=== PATIENT | male | born 1990 ===

== ENCOUNTER → 2016-11-01 | Outpatient (REF) | payer OTHER ==
[2016-11-01 10:38] LABS: % NORMAL FORMS 22 % (>=4); IMMOTILITY 27 %; NON PROGRESSIVE MOTILITY (c) 12 %; PROGRESSIVE MOTILITY (a) 61 % (>=32); TOTAL MOTILITY 73 % (>=40)
[2016-11-01 10:39] LABS: SPERM# 81.5 M/Ejac (33-46); TOTAL PROGRESSIVE SPERM 49.8 M/Ejac.
== END ==
LOC: M LAB REF 09:57
PROVIDERS: ATTEND Physician Assistant
DX: Z31.41 Encounter for fertility testing (principal)

== ENCOUNTER → 2016-11-08 | Outpatient (REF) | payer OTHER ==
[2016-11-08 10:07] LABS: SPERM ABNORMAL FORMS WBC'S NOTED
[2016-11-08 10:08] LABS: % NORMAL FORMS 15 % (>=4); IMMOTILITY 44 %; NON PROGRESSIVE MOTILITY (c) 10 %; PROGRESSIVE MOTILITY (a) 46 % (>=32); SPERM# 213.8 M/Ejac (33-46); TOTAL FUNCTIONAL 31.7 M/Ejac.; TOTAL MOTILITY 56 % (>=40); TOTAL PROGRESSIVE SPERM 99.2 M/Ejac.
== END ==
LOC: M LAB REF 09:57
PROVIDERS: ATTEND Physical Therapist
DX: Z31.41 Encounter for fertility testing (principal)

== ENCOUNTER → 2016-11-15 | Outpatient (REF) | payer OTHER ==
[2016-11-15 11:13] LABS: SPERM ABNORMAL FORMS WBC'S NOTED
[2016-11-15 11:14] LABS: % NORMAL FORMS 28 % (>=4); IMMOTILITY 3 %; NON PROGRESSIVE MOTILITY (c) 13 %; PROGRESSIVE MOTILITY (a) 84 % (>=32); TOTAL FUNCTIONAL 48.6 M/Ejac.; TOTAL MOTILITY 97 % (>=40); TOTAL PROGRESSIVE SPERM 99.5 M/Ejac.
== END ==
LOC: M LAB REF 11:10
PROVIDERS: ATTEND Physician Assistant
DX: Z31.41 Encounter for fertility testing (principal)